=== PATIENT | male | born 1965 | race Caucasian/White ===

== ENCOUNTER 2025-01-19 11:54 | Emergency (ER) | payer MEDICAID ==
[~2025-01-19] VITALS: Ht 167.6 cm; Wt 78.0 kg
[2025-01-19 11:56] VITALS: O2SAT 100
[2025-01-19] MEDS: KETOROLAC 30MG/ML VIAL IM ONE (15:39)
[2025-01-19] MEDS: ACETAMINOPHEN 325MG TABLET PO ONE (15:42)
[2025-01-19] MEDS ORDERED: ACET-2708 MT (15:45)
[2025-01-19 16:02] VITALS: BP 134/84; PULSE 87; RESP 16; TEMP 36.7; O2SAT 99
== END 2025-01-19 16:07 | disposition home or self-care (01) ==
LOC: ER 11:54
DX: S80.02XA Contusion of left knee, initial encounter (principal); S09.8XXA Other specified injuries of head, initial encounter; X58.XXXA Exposure to other specified factors, initial encounter; Y93.89 Activity, other specified; Y92.89 Other specified places as the place of occurrence of the external cause; Y99.8 Other external cause status; I10 Essential (primary) hypertension
CPT/HCPCS: 99285; 70450; 73564; 96372; J1885